=== PATIENT | male | born 1955 | race Caucasian/White ===

== ENCOUNTER 2024-04-24 17:43 | Emergency (ER) | payer BC, MEDICARE, OTHER ==
[2024-04-24 23:11] VITALS: BP 112/69; PULSE 89
== END 2024-04-24 23:11 | disposition home or self-care (01) ==
LOC: MW.ED 17:43
DX: M25.512 Pain in left shoulder (principal); I10 Essential (primary) hypertension; K21.9 Gastro-esophageal reflux disease without esophagitis; Z75.8 Other problems related to medical facilities and other health care; Z79.01 Long term (current) use of anticoagulants; Z79.899 Other long term (current) drug therapy
CPT/HCPCS: 73502-26-LT; 73502-LT; 93971-26-LT; 93971-LT; 99284